=== PATIENT | male | born 1980 | race Caucasian/White ===

== ENCOUNTER 2016-10-19 18:57 | Emergency (ER) | payer OTHER ==
[~2016-10-19] VITALS: Ht 195.6 cm; Wt 81.7 kg
[~2016-10-19 18:57] MED LIST: ADDERALL XR 2020 MG PO; DOXYCYCLINE 10100 M1 PO; DOXYCYCLINE 10100 MG PO; NOHOMEMEDICATIONS; NORCO 5-325 TA1 EACH PO
[2016-10-19] MEDS ORDERED: MOBIC15 MG PO (20:35)
[2016-10-19 20:54] VITALS: BP 114/77
[2016-10-19] MEDS ORDERED: NORCO 5-325 TA1 EACH PO (21:12)
== END 2016-10-19 21:18 | disposition home or self-care (01) ==
LOC: ER 18:57
DX: S40.011A Contusion of right shoulder, initial encounter (principal); F90.9 Attention-deficit hyperactivity disorder, unspecified type; F17.210 Nicotine dependence, cigarettes, uncomplicated; X58.XXXA Exposure to other specified factors, initial encounter; Y93.89 Activity, other specified; Y92.89 Other specified places as the place of occurrence of the external cause; Y99.9 Unspecified external cause status

== ENCOUNTER 2019-04-26 16:24 | Emergency (ER) | payer OTHER ==
[~2019-04-26] VITALS: Ht 175.3 cm; Wt 69.4 kg
[~2019-04-26 16:24] MED LIST changes: +MOBIC15 MG PO
[2019-04-26 17:48] LABS: ABSOLUTE NEUTROPHILS 7.9 thou/uL (1.4-8.2); BASOPHILS 0.5 % (0.0-2.0); EOSINOPHILS 1.3 % (0.0-3.0); HEMATOCRIT 38.3 % (42.0-52.0); HEMOGLOBIN 12.8 gm/dL (14.0-18.0); MCHC 33.5 g/dL (28.0-37.0); MCV 95.4 fL (80.0-100.0); MONOCYTES 10.3 % (1.0-8.0); PLATELET COUNT 212 thou/uL (150-400); POLYS 70.9 % (36.0-66.0); RBC 4.01 mil/uL (4.50-6.00); RDW 12.5 % (10.5-14.5); WBC 11.2 thou/uL (4.0-11.0)
[2019-04-26 18:03] LABS: CREATININE 0.9 mg/dL (0.7-1.3); POTASSIUM 3.5 mmol/L (3.5-5.1)
[2019-04-26 18:07] LABS: ALBUMIN 3.6 g/dL (3.4-5.0); DIRECT BILIRUBIN 0.1 mg/dL (<0.1-0.3); TOTAL BILIRUBIN 0.3 mg/dL (<0.1-1.0); TOTAL PROTEIN 6.9 g/dL (6.4-8.2)
[2019-04-26 19:44] LABS: URINE BILIRUBIN NEGATIVE (Negative); URINE BLOOD NEGATIVE (Negative); URINE CLARITY CLEAR; URINE COLOR YELLOW; URINE GLUCOSE-RANDOM* NEGATIVE (Negative); URINE KETONES NEGATIVE (Negative); URINE LEUKOCYTES-REFLEX NEGATIVE (Negative); URINE NITRITE-REFLEX NEGATIVE (Negative); URINE PROTEIN (DIPSTICK) NEGATIVE (Negative); URINE SPECIFIC GRAVITY >= 1.030 (1.005-1.035); URINE UROBILINOGEN 0.2 E.U./dl (0.2-1.0)
[2019-04-26 20:06] LABS: AMP/METHAMP POSITIVE (Negative); BARBITURATES Negative (Negative); BENZODIAZEPINES POSITIVE (Negative); COCAINE Negative (Negative); METHADONE Negative (Negative); OPIATES Negative (Negative); PCP Negative (Negative)
[2019-04-26] MEDS ORDERED: DOXYCYCLINE 10100 MG PO (21:17)
[2019-04-26 21:23] VITALS: BP 113/73
== END 2019-04-26 21:30 | disposition left against medical advice (07) ==
LOC: ER 16:24
PROVIDERS: Nurse Practitioner
DX: L02.413 Cutaneous abscess of right upper limb (principal); F17.210 Nicotine dependence, cigarettes, uncomplicated; F90.9 Attention-deficit hyperactivity disorder, unspecified type

== ENCOUNTER 2020-01-09 10:03 | Emergency (ER) | payer OTHER ==
[~2020-01-09] VITALS: Ht 198.1 cm; Wt 79.4 kg
[2020-01-09 10:08] VITALS: BP 156/98
[2020-01-09] MEDS ORDERED: BACTRIM DS TAB1 EACH PO (11:10)
[2020-01-09] MEDS ORDERED: NAPROSYN500 MG PO (11:10)
== END 2020-01-09 11:01 | disposition home or self-care (01) ==
LOC: ER 10:03
DX: L02.412 Cutaneous abscess of left axilla (principal); F17.210 Nicotine dependence, cigarettes, uncomplicated; Z98.890 Other specified postprocedural states

== ENCOUNTER 2020-01-11 18:39 | Emergency (ER) | payer OTHER ==
[~2020-01-11] VITALS: Ht 198.1 cm; Wt 81.7 kg
[~2020-01-11 18:39] MED LIST changes: +BACTRIM DS TAB1 EACH PO; +NAPROSYN500 MG PO
[2020-01-11] MEDS ORDERED: BACTRIM DS TAB1 EACH PO (19:40)
[2020-01-11 20:03] VITALS: BP 112/72
== END 2020-01-11 20:00 | disposition home or self-care (01) ==
LOC: ER 18:39
DX: L02.412 Cutaneous abscess of left axilla (principal); L02.214 Cutaneous abscess of groin; L02.411 Cutaneous abscess of right axilla; F90.9 Attention-deficit hyperactivity disorder, unspecified type; Z98.890 Other specified postprocedural states; Z79.2 Long term (current) use of antibiotics; Z79.899 Other long term (current) drug therapy; F17.210 Nicotine dependence, cigarettes, uncomplicated

== ENCOUNTER 2020-03-12 07:19 | Emergency (ER) | payer OTHER ==
[~2020-03-12] VITALS: Ht 195.6 cm; Wt 79.4 kg
[2020-03-12 09:04] LABS: URINE BILIRUBIN NEGATIVE (Negative); URINE BLOOD NEGATIVE (Negative); URINE CLARITY CLEAR; URINE COLOR YELLOW; URINE GLUCOSE-RANDOM* NEGATIVE (Negative); URINE KETONES NEGATIVE (Negative); URINE LEUKOCYTES-REFLEX NEGATIVE (Negative); URINE NITRITE-REFLEX POSITIVE (Negative); URINE PROTEIN (DIPSTICK) NEGATIVE (Negative); URINE SPECIFIC GRAVITY 1.015 (1.005-1.035); URINE UROBILINOGEN 0.2 E.U./dl (0.2-1.0)
[2020-03-12 09:21] LABS: CASTS None Seen /LPF (None Seen); CRYSTALS None Seen /LPF (None Seen); SQUAMOUS 0-3 Few /LPF (0-3)
[2020-03-12 09:22] LABS: BACTERIA-REFLEX 1-9 Few /HPF (None Seen)
[2020-03-12 09:23] LABS: URINE RBC None Seen /HPF (0-2); URINE WBC-REFLEX 0-5 Rare /HPF (0-5)
[2020-03-12 09:56] LABS: ABSOLUTE NEUTROPHILS 4.2 thou/uL (1.4-8.2); BASOPHILS 0.5 % (0.0-2.0); EOSINOPHILS 1.9 % (0.0-3.0); HEMOGLOBIN 13.6 gm/dL (14.0-18.0); LYMPHOCYTES 24.2 % (24.0-44.0); MCH 32.6 pg (26.0-34.0); MONOCYTES 8.2 % (1.0-8.0); PLATELET COUNT 220 thou/uL (150-400); POLYS 65.2 % (36.0-66.0); RBC 4.17 mil/uL (4.50-6.00); RDW 12.4 % (10.5-14.5); WBC 6.5 thou/uL (4.0-11.0)
[2020-03-12 10:01] LABS: CALCIUM 8.3 mg/dL (8.5-10.1); CREATININE 0.8 mg/dL (0.7-1.3)
[2020-03-12 11:44] VITALS: BP 109/72
== END 2020-03-12 11:44 | disposition home or self-care (01) ==
LOC: ER 07:19
PROVIDERS: Emergency Medicine
DX: M54.6 Pain in thoracic spine (principal); M54.5 Low back pain; R31.9 Hematuria, unspecified; N50.812 Left testicular pain; R35.0 Frequency of micturition; R39.15 Urgency of urination; R11.0 Nausea; F90.9 Attention-deficit hyperactivity disorder, unspecified type; F17.210 Nicotine dependence, cigarettes, uncomplicated; Z98.890 Other specified postprocedural states